=== PATIENT | female | born 1990 | race Caucasian/White ===

== ENCOUNTER → 2024-03-05 11:59 | Outpatient (CLI) | payer OTHER, SELFPAY ==
--- NOTE | 2024-03-05 12:16 | DI.US.S_ITS ---
PROCEDURE: US OB >= 14 WEEKS FETUS INDICATIONS: 20 WEEK ANATOMY OUTSIDE/PRIOR DATING DATA: Last menstrual period (LMP): 10/08/2023. LMP-based estimated date of delivery (TEMITOPE): 07/14/2024. TECHNIQUE: Real-time scanning was performed of the fetus, with image documentation and biometric measurements. COMPARISON: None. FINDINGS: General: A single living intrauterine gestation is present. Presentation: Transverse. Placenta: Placental position is fundal , without previa. Amniotic fluid index: 18.5 cm, normal range is 5-24 cm. Single deepest vertical pocket is 5.9 cm. heart rate: 152 beats per minute. Maternal cervical canal: 5 cm long. Normal lower limit is 2.5 cm. biometrics: Biparietal diameter: 5.1 cm, 21 weeks and 4 days Head circumference: 19.3 cm, 21 weeks and 3 days Abdominal circumference: 16 cm, 21 weeks Femur length: 3.5 cm, 21 weeks and 1 day Clinically estimated gestational age: 21 weeks and 2 days Composite gestational age from present scan: 21 weeks and 2 days Estimated weight and percentile: 405 g, 39% Anatomic survey: Neuro: Ventricles are non-dilated at less than 10 mm. Cisterna magna is normal at 3-11 mm. Cerebellum is normal in size and morphology. Nuchal skin fold: Normal at less than 6 mm between 14-21 weeks gestational age. Face: Nose and lips, facial profile are normal. Spine: No evidence for spina bifida. Heart: 4-chambered heart is present, with normal ventricular outflow tracts. Diaphragm: Diaphragm is intact. Stomach: Left-sided stomach is present. Kidneys: No hydronephrosis. Normal is less than 5 mm in 2nd trimester, less than 7 mm in 3rd trimester. Cord: 3-vessel cord has orthotopic insertion. Bladder: Normal in size. Extremities: All 4 extremities identified. IMPRESSION: Living intrauterine gestation. Transverse presentation. Normal ANJALI. Biometry at the 39th percentile. No significant anatomic abnormalities on routine survey. Dictated by: Blaine Miranda M.D. on 03/05/2024 at 16:57 Approved by: Blaine Miranda M.D. on 03/05/2024 at 17:01
== END ==
LOC: US 12:00
PROVIDERS: Referring Provider Nurse Practitioner Obstetrics & Gynecology; Visit Provider Nurse Practitioner Obstetrics & Gynecology
DX: Z34.92 Encounter for supervision of normal pregnancy, unspecified, second trimester (principal); Z3A.21 21 weeks gestation of pregnancy
CPT/HCPCS: 76811

== ENCOUNTER 2024-07-19 05:04 | Inpatient (IN) | payer OTHER, SELFPAY ==
--- NOTE | 2024-07-19 05:09 | PM.OBHP.1 ---
OB HPI Date/Time Date of admission: 07/19/24 Date Patient Seen: 07/19/24 Time Patient Seen: 05:09 History of Present Condition Chief complaint: Labor : 2 Para: 1 Estimated Date of Delivery: 07/14/24 Estimated Gestational Age (weeks): 40.5 Narrative: Helena Rousseau is a 33 year old female [id number] at 40.5weeks gestation by LMP 10/08/23 her for evaluation of labor. Seen in clinic yesterday mildly dagmar for membrane sweep. CE at clinic %/-3. Contractions intensified overnight now dagmar every 2min on arrival to the center. +FM. No vaginal bleeding or leaking of fluid. Uncomplicated care with CNMS. Requesting epidural. Accompanied by her supportive , Fran Keenan. History of Present care: good care, initiated at week # (13), number of visits (11) and pounds weight gain (38) Dating criteria: LMP confirmed by 1st trimester US Ultrasounds: normal 1st trimester US and normal mid trimester US Obstetrical complications: none Medical complications: none Preadmission Labs Blood type: 0 (-) negative -: Antibody screen: negative, GBS status: negative, HBsAG: negative, HIV: negative and RPR/VDLR: negative -: Chlamydia screen: not detected and Gonorrhea screen: not detected -: Rubella: immune and Varicella: immune HCT: 35.8 HCAB: negative Cell-free DNA: Negative 1 hr GTT: 61 Prior (ies) History: 05/24/2022- NSVB @ [id number], 19hr labor, [id number], male, periurethral tearing Hx # Term Pregnancies: 1 Hx # Pregnancies: 0 Number of Living Children: 1 Multiple births: 0 Spontaneous abortions: 0 Ectopic pregnancies: 0 Elective abortions: 0 Evaluation Evaluation Baseline heart rate: 130 Variability: Moderate (11-25) monitor accelerations: Absent Monitor Decelerations: Absent Contraction Frequency (minutes): 2 Uterine Contraction Intensity: Strong/Firm PFSH Surgical History Anesthesia History of hip surgery (~05/2015) Family History Mother Long QT syndrome Lupus Grandfather COVID Grandmother Long QT syndrome Grandfather Diabetes mellitus Social History Smoking Status: Never smoker Meds Home Medications and Allergies Allergies Allergy/AdvReac Type Severity Reaction Status Date / Time No Known Drug Allergies Allergy Unverified 06/07/24 07:55 Review of Systems Review of Systems ROS: Yes All systems reviewed with the patient and are negative except as otherwise documented OB Exam Vital signs Blood Pressure: 144/74 Pulse Rate: 88 Temperature: 96.6 F (temporal) Resp Effort & Inspection: normal respiratory effort and able to speak in complete sentences Auscultation: clear to auscultation bilaterally Cardio Rate: regular rate Rhythm: regular rhythm Heart Sounds: S1 normal and S2 normal Presentation: vertex Objective Labs 07/19/24 05:35 Assessment and Plan Assessment and Plan Assessment and Plan narrative: A: Term primipara Active labor Rh negative status Elevated BP reading without dx of HTN Cat I FHR P: Admit, routine labor orders. Expectant management of labor. Epidural now. Reassess after epidural sets up. Currently working hard with strong contractions, will check pre-E labs if HTN persists. Time-Based Coding :: [TOTAL MINUTES] spent with patient and on the chart (including review of chart, obtaining history, exam, reviewing outside data, placing orders, documenting exam and treatment plan, and counseling patient) on [DATE].
[2024-07-19 05:51] LABS: Add Manual Diff / Slide Review NO; Basophils Absolute Auto 0 /uL (0-100); Basophils Percent Auto 0.4 % (0-2); Eosinophils Absolute Auto 100 /uL (0-450); Eosinophils Percent Auto 0.5 % (2-4); Hematocrit 42.1 % (36-46); Hemoglobin 14.3 g/dL (12.0-16.0); Lymphocytes Absolute Auto 1800 /uL (1100-4500); Lymphocytes Percent Auto 15.5 % (25-40); Mean Corpuscular Hemoglobin 31.1 PG (26-34); Mean Corpuscular Volume 91.4 fL (80-100); Monocytes Absolute Auto 500 /uL (0-900); Monocytes Percent Auto 4.3 % (3-14); Neutrophils Absolute Auto 9100 /uL (1500-7000); Neutrophils Percent Auto 79.3 % (50-75); Platelet Count 188 X10^3/uL (150-400); Red Cell Distribution Width 15.9 % (11.6-14.8); White Blood Cell Count 11.5 X10^3/uL (4.5-11.0)
--- NOTE | 2024-07-19 06:35 | P.PCN_ITS ---
Regional Block Pre-procedure PMH/ROS narrative: 33yr old requesting CARLOTTA for labor pain. Had epidural with prior without issue. No medical problems or problems with . PSH/Anesthesia history narrative: Hip Sx ASA Class: II Labs: Hct 42.1 % (36-46) 07/19/24 05:35 Plt Count 188 X10^3/uL (150-400) 07/19/24 05:35 Medications: Current Medications Generic Name Dose Route Start Last Admin Trade Name Freq PRN Reason Stop Dose Admin Calcium Carbonate 1,000 mg 07/19/24 05:07 Calcium Carbonate 500 Mg Tab PO Q2HR PRN Dyspepsia Carboprost Tromethamine 250 mcg 07/19/24 05:07 Carboprost 250 Mcg/Ml Ampul IM Q90M PRN Bleeding Fentanyl 100 mcg 07/19/24 05:07 Fentanyl 100 Mcg/2 Ml Inj IV Q1H PRN Pain, Severe (7-10) Oxytocin/Lactated Ringer's 30 unit in 500 mls @ 200 mls/hr 07/19/24 05:07 Oxytocin Premix IV CONT PRN Bleeding Protocol Tranexamic Acid 1,000 mg/ 100 mls @ 600 mls/hr 07/19/24 05:07 Sodium Chloride IV NOW PRN Bleeding Lactated Ringer's 1,000 mls @ 100 mls/hr 07/19/24 05:15 Lactated Ringers IV 07/19/24 15:14 CONT TAMI Lidocaine HCl 20 ml 07/19/24 05:07 Lidocaine 1% 20 Ml INJ INTRA-OP PRN Post Delivery Methylergonovine Maleate 0.2 mg 07/19/24 05:07 Methylergonovine 0.2 Mg Tablet PO Q6HR PRN Heavy Bleeding Methylergonovine Maleate 0.2 mg 07/19/24 05:07 Methylergonovine 0.2 Mg/Ml Vial IM NOW PRN Bleeding Mineral Oil 30 ml 07/19/24 05:07 Mineral Oil 30 Ml Udc TOP PRN PRN Version Misoprostol 800 mcg 07/19/24 05:07 Misoprostol 200 Mcg Tablet OH NOW PRN Bleeding Misoprostol 400 mcg 07/19/24 05:07 Misoprostol 200 Mcg Tablet SL NOW PRN Bleeding Naloxone HCl 0.2 mg 07/19/24 05:07 Naloxone 0.4 Mg/Ml Vial IV Q2MIN PRN Opiate Reversal Ondansetron HCl 4 mg 07/19/24 05:07 Ondansetron 4 Mg/2 Ml Inj IV Q4HR PRN Nausea And Vomiting Oxytocin 10 unit 07/19/24 05:07 Oxytocin 10 Unit/Ml Vial IM NOW PRN Bleeding Allergies: Allergies Allergy/AdvReac Type Severity Reaction Status Date / Time No Known Drug Allergies Allergy Unverified 06/07/24 07:55 --: Intrathecal dose given and 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 1cc marcaine given through 17g Hustead/27g Arturo. Delivered 16 minutes later Procedure Insertion date: 07/19/24 Insertion time: : Prep/Local: 1% lidocaine (chloroprep) Interspace: L3-4 Patient position: sitting Needle: 18 gauge Hustead Loss of resistance with: saline MALLIKA at (cm): 5 Insertion: Yes CSF, No Paresthesia with insertion, No Paresthesia with injection and No Test dose reaction Initial Medications BOLUS DOSE time: BOLUS DOSE (mL): 1 BOLUS DOSE med: 0.25% bupivacaine Post-procedure Anesthesia date START: 07/19/24 Anesthesia time START: : Anesthesia date END: 07/19/24 Anesthesia time END: 06:39 Post-procedure Anesthesia Assessment: Yes CV function: HR/BP stable, Yes Resp function: RR/sat/airway adequate, Yes Post-op hydration adequate, Yes Pain control adequate, Yes Nausea & vomiting absent, Yes Temperature > 36 C and Yes Mental status appropriate
[2024-07-19 07:25] VITALS: BP 144/74; PULSE 88; TEMP 35.9
--- NOTE | 2024-07-19 07:25 | PM.OBPRVD ---
Labor & Delivery Delivery date: 07/19/24 Delivery Time: 06:38 Intrapartal Events: Deceleration Cervical ripening method: none Induction method: none Delivery monitor: external FHT and external uterine Route of delivery: Episiotomy description: None L&D Laceration Description: Perineal - 2nd Degree and Labial Delivery repair: chromic (4.0 for labial lac & 3.0 for perineal lac) Quantitative Blood Loss: 100 Anesthesia Type: Other (intrathecal) Narrative: Spontaneous labor progressed rapidly. Moderately good pain control achieved with intrathecal. No epidural placed due to urge to push. SROM for clear fluid occurred at 0613. Complete dilation with strong urge to push at 0635. FHR Cat II for recurrent variable decelerations and prolonged decelerations during transition, moderate variability throughout. Controlled descent during 13 minute second stage with coaching and strong maternal efforts. NSVB of vigorous female at 0638, delivered LEONEL, somersaulted through a single, tight nuchal cord. Cord reduced after delivery and placed on maternal abdomen for drying and skin to skin. The shoulders delivered easily, without additional maneuvers. Pitocin started at 30units in 500ml LR at 333ml/hr for active management of the third stage. Cord clamped by SNM and cut by FOB after cessation of pulsation. Cord blood collected. Gentle cord traction and a single maternal push led to spontaneous, Schultze delivery of an apparently intact placenta, membranes and 3VC. Fundus immediately firm and bleeding scant. Inspection revealed a short, superficial, left labial/periclitoral laceration and a second degree perineal laceration. Left labial laceration repaired with 4-0 chromic and second degree perineal laceration repaired with 3-0 chromic for good approximation and hemostasis. QBL 100mL. Mother and baby stable skin to skin as I left the room. Baby 1: Infant gender: Female Presentation: vertex Position: Left Occiput Anterior Placenta delivery description: Spontaneous and Normal Configuration Cord Vessel Description: 3 Vessels, Nuchal Cord and Tight score (1 min): 8 score (5 min): 9 weight: 3.793 kg Plan for aftercare: Routine care
[2024-07-19] MEDS: WITCH HAZEL/GLYCERIN PADS 1 EACH TOP (07:58)
[2024-07-19] MEDS: DERMOPLAST SPRAY 20% 60 ML 1 SPRAY TOP (07:58)
[2024-07-19] MEDS: KETOROLAC 30 MG/ML VIAL IV (07:59)
[2024-07-19 08:17] VITALS: BP 156/74
--- NOTE | 2024-07-19 09:16 | PM.OBDS.1 ---
Discharge Providers <Sona Olmstead CNM - Last Filed: 07/19/24 10:03> Provider Date of admission: 07/19/24 05:04 Discharge Date: 07/19/24 Primary care physician: Karla Ma DO Consults: 07/19/24 05:07 Consult to Anesthesiology Urgent Comment: Consulting Provider: Ileana Mahmood Reason for consultation: Epidural Has provider been notified: No 07/20/24 07:21 Consult to Systems Navigator Routine Comment: Discharge provider: Sona Olmstead CNM Summary <Sona Olmstead CNM - Last Filed: 07/19/24 10:03> Hospital Course Date Patient Seen: 07/19/24 Time Patient Seen: 09:21 Diagnoses: O70.1 Hospital Course: 3 hours s/p precipitous NSVB. Voiding without difficulty. Denies any pain or heavy bleeding w/clots. Ambulating independently. Breast feeding ad cis[facility] reports latch with this baby is better than previous child. Eager for and requesting discharge to home MICHELLE. Agrees to close follow up in clinic tomorrow morning. remains supportive at her side. Peripartum Data Delivery Method: Natural Vaginal Laceration Description: Perineal - 2nd Degree and Labial Episiotomy description: None [place] 1: Gender: Female Disposition of : home Discharge Diagnosis (1) Del w/ 2 deg lac-unsp: Status: Acute (2) Precipitous delivery: Status: Acute Time Spent with Patient Time attestation: Total time spent providing and/or coordinating discharge services: <Shanice Pederson CNM, [employer] - Last Filed: 07/20/24 09:38> Discharge Diagnosis (1) Del w/ 2 deg lac-unsp: (2) Precipitous delivery: Objective <Sona Olmstead CNM - Last Filed: 07/19/24 10:03> Labs 07/19/24 05:35 07/19/24 09:33 Labs: Laboratory Results - last 24 hr 07/19/24 05:35 WBC 11.5 H RBC 4.60 Hgb 14.3 Hct 42.1 MCV 91.4 MCH 31.1 MCHC 34.0 RDW 15.9 H Plt Count 188 Neut % (Auto) 79.3 H Lymph % (Auto) 15.5 L [place] % (Auto) 4.3 Eos % (Auto) 0.5 L Baso % (Auto) 0.4 Neut # (Auto) 9100 H Lymph # (Auto) 1800 [place] # (Auto) 500 Eos # (Auto) 100 Baso # (Auto) 0 Blood Type O Negative Antibody Screen Positive Antibody Identification Anti-D Exam <Sona Olmstead CNM - Last Filed: 07/19/24 10:03> Vital Signs (past 8 hours): - BP 117/73, HR 75bpm, T 97.0F Temporal Other: fundus firm @ u, lochia small to moderate without clots. Perineum well approximated. <Shanice Pederson CNM, [facility] - Last Filed: 07/20/24 09:38> Vital Signs (past 8 hours): - BP 109/77, HR 93, 98F temporal Discharge Plan Discharge Plan Patient Disposition: Home Discharge orders & Medications Prescriptions: New ibuprofen 600 mg Tablet 600 mg PO Q6HR PRN (Reason: Pain, Mild (1-3)) 14 Days Qty: 40 0RF Follow up/Referrals: Sona Olmstead CNM [[employer] Supervisor] - (Follow-up tomorrow @ 0945 Follow-up at 2wks PP 08/01/24 @ 1200 Follow-up at 6wk PP 08/29/24 @ 1045) Karla Ma DO [Primary Care Provider] - Diet/Activity/Treatments Diet: Diet as Tolerated and Regular Diet comment: increase fiber and fluid for healing and stool Activity: bed rest x 2wks, no lifting (>10lbs) x 4 weeks, pelvic rest x 6 weeks Skin/Wound/Dressing Care Skin care: usual care Report to your healthcare provider any signs of infection, such as:: chills, fever, increased pain, unusual drainage and unusual redness Visit Report/Discharge Packet Instructions: DI for Depression Stand Alone Forms: Discharge: Care, Patient Portal/API, Stroke Signs & Symptoms Discharge Data Primary Care Provider: Karla Ma
[2024-07-19 10:02] LABS: Alanine Aminotransferase 23 IU/L (<35); Albumin 3.5 g/dL (3.5-5.0); Albumin Globulin Ratio 1.3 (1.0-2.8); Alkaline Phosphatase 115 U/L (38-126); Aspartate Aminotransferase 33 IU/L (14-36); BUN Creatinine Ratio 19.6 (6-22); Bilirubin Total 0.3 mg/dL (0.2-1.3); Blood Urea Nitrogen 10 mg/dL (7-17); Calcium 8.9 mg/dL (8.4-10.2); Carbon Dioxide 19 mmol/L (22-32); Chloride 103 mmol/L (98-107); Estimated Glomerular Filt Rate > 60 mL/min (>60); Globulin 2.6 g/dL (1.7-4.1); Glucose 138 mg/dL (70-100); HEMOLYSIS < 15 (0-50); Potassium 3.8 mmol/L (3.4-5.1); Sodium 130 mmol/L (137-145); Total Protein 6.1 g/dL (6.3-8.2)
[2024-07-19 10:48] VITALS: BP 128/83; PULSE 100; RESP 18; TEMP 36.2; O2SAT 99
[2024-07-20] MEDS: RHO(D) IMMUNE GLOBULIN 1,500 UNIT SYRINGE 1500 UNIT IM (06:42)
[2024-07-20 11:48] VITALS: BP 128/83; PULSE 100; RESP 18; TEMP 36.2
== END 2024-07-20 11:48 | disposition home or self-care (01) | DRG 807 ==
PROVIDERS: Admitting Provider Nurse Practitioner Obstetrics & Gynecology; PCP Family Medicine; Referring Provider Nurse Practitioner Obstetrics & Gynecology; Visit Provider Nurse Practitioner Obstetrics & Gynecology
DX: O70.1 Second degree perineal laceration during delivery (principal); Z37.0 Single live birth; Z3A.40 40 weeks gestation of pregnancy; Z67.41 Type O blood, Rh negative; O76 Abnormality in fetal heart rate and rhythm complicating labor and delivery; O62.3 Precipitate labor
CPT/HCPCS: 36415; 59050; 80053; 85025; 85461; 86850; 86870; 86900; 86901; G0379; J1885; J2790